=== PATIENT | male | born 1960 | race Caucasian/White ===

== ENCOUNTER 2017-10-02 08:13 | Inpatient (IN) | payer BC ==
[2017-10-02] MEDS ORDERED: RX INFO: IV CONTRAST WAS GIVEN 1 EACH MISC MISCELLANE PRN (08:24)
[2017-10-02] MEDS ORDERED: SODIUM CHLORIDE 0.9% 1,000 ML IV STA ×2 (08:24)
--- NOTE | 2017-10-02 08:28 | ED ---
General Adult HPI - General Chief complaint: Neuro Symptoms/Deficit Stated complaint: Leg numbness Time Seen by Provider: 10/02/17 08:23 Source: patient, RN notes reviewed, old records reviewed Mode of arrival: ambulatory Limitations: no limitations - History of Present Illness Initial comments: This is a 57-year-old male to the ER for evaluation of neurological complaint, left-sided weakness left arm weakness of leg weakness. Patient has history of high blood pressure high cholesterol. Patient has no prior history of neurological deficit. Symptoms began at 1:00 AM this morning. He was at work when symptoms began. Patient continues to have persistent symptoms now started left leg currently in left leg left arm. No headache. No trauma - Related Data Home Medications Medication Instructions Recorded Confirmed No Known Home Medications [No 10/02/17 10/02/17 Known Home Medications] Allergies Allergy/AdvReac Type Severity Reaction Status Date / Time No Known Allergies Allergy Verified 10/02/17 08:40 Review of Systems ROS Statement: Those systems with pertinent positive or pertinent negative responses have been documented in the HPI. ROS Other: All systems not noted in ROS Statement are negative. Past Medical History Past Medical History: Hyperlipidemia, Hypertension History of Any Multi-Drug Resistant Organisms: None Reported Past Surgical History: Joint Replacement, Orthopedic Surgery Past Psychological History: No Psychological Hx Reported Smoking Status: Current every day smoker Past Alcohol Use History: Occasional Past Drug Use History: None Reported General Exam - General Exam Comments Initial Comments: NIH 3 nystagmus, failed Left heel anthony, failed left finger nose Limitations: no limitations General appearance: alert, in no apparent distress Head exam: Present: atraumatic, normocephalic, normal inspection Eye exam: Present: normal appearance, PERRL, EOMI, nystagmus. Absent: scleral icterus, conjunctival injection, periorbital swelling ENT exam: Present: normal exam, mucous membranes moist Neck exam: Present: normal inspection. Absent: tenderness, meningismus, lymphadenopathy Respiratory exam: Present: normal lung sounds bilaterally. Absent: respiratory distress, wheezes, rales, rhonchi, stridor Cardiovascular Exam: Present: regular rate, normal rhythm, normal heart sounds. Absent: systolic murmur, diastolic murmur, rubs, gallop, clicks GI/Abdominal exam: Present: soft, normal bowel sounds. Absent: distended, tenderness, guarding, rebound, rigid Extremities exam: Present: normal inspection, full ROM, normal capillary refill. Absent: tenderness, pedal edema, joint swelling, calf tenderness Back exam: Present: normal inspection Neurological exam: Present: alert, oriented X3, CN II-XII intact Psychiatric exam: Present: normal affect, normal mood Skin exam: Present: warm, dry, intact, normal color. Absent: rash Course Vital Signs 10/02/17 08:14 Pulse Rate 103 H Respiratory 18 Rate Blood Pressure 150/98 O2 Sat by Pulse 99 Oximetry - Reevaluation(s) Reevaluation #1: 10/02/17 09:32 No significant clinical improvement throughout ER stay Reevaluation #2: 10/02/17 09:32 Spoke with patient regarding diagnosis, questions answered EKG Findings - EKG Comments: EKG Findings:: EKG shows normal sinus rhythm rate of 87, MI 178, QRS 92, QTc 474 Medical Decision Making - Medical Decision Making 57 male the ER for evaluation left-sided weakness, vertiginous symptoms likely related to CVA. Patient given aspirin here in ER was a for neurological evaluation - Lab Data Result diagrams: 10/02/17 08:30 10/02/17 08:30 Lab Results 10/02/17 10/02/17 10/02/17 Range/Units 08:30 08:30 08:30 WBC 10.0 (3.8-10.6) k/uL RBC 5.87 (4.30-5.90) m/uL Hgb 15.4 (13.0-17.5) gm/dL Hct 46.3 (39.0-53.0) % MCV 78.9 L (80.0-100.0) fL MCH 26.3 (25.0-35.0) pg MCHC 33.3 (31.0-37.0) g/dL RDW 13.4 (11.5-15.5) % Plt Count 329 (150-450) k/uL Neutrophils % 54 % Lymphocytes % 34 % Monocytes % 5 % Eosinophils % 4 % Basophils % 1 % Neutrophils # 5.4 (1.3-7.7) k/uL Lymphocytes # 3.4 (1.0-4.8) k/uL Monocytes # 0.5 (0-1.0) k/uL Eosinophils # 0.4 (0-0.7) k/uL Basophils # 0.1 (0-0.2) k/uL PT (9.0-12.0) sec INR (<1.2) APTT (22.0-30.0) sec Sodium 140 (137-145) mmol/L Potassium 4.3 (3.5-5.1) mmol/L Chloride 103 (98-107) mmol/L Carbon Dioxide 24 (22-30) mmol/L Anion Gap 13 mmol/L BUN 17 (9-20) mg/dL Creatinine 1.07 (0.66-1.25) mg/dL Est GFR (CKD-EPI)AfAm 89 (>60 ml/min/1.73 sqM) Est GFR (CKD-EPI)NonAf 77 (>60 ml/min/1.73 sqM) Glucose 113 H (74-99) mg/dL POC Glucose (mg/dL) (75-99) mg/dL POC Glu Director Business Development ID Calcium 9.3 (8.4-10.2) mg/dL Total Bilirubin 0.4 (0.2-1.3) mg/dL AST 28 (17-59) U/L ALT 37 (21-72) U/L Alkaline Phosphatase 73 (38-126) U/L Total Creatine Kinase 126 (55-170) U/L CK-MB (CK-2) 1.2 (0.0-2.4) ng/mL CK-MB (CK-2) Rel Index 1.0 Troponin I <0.012 (0.000-0.034) ng/mL Total Protein 7.4 (6.3-8.2) g/dL Albumin 4.3 (3.5-5.0) g/dL 10/02/17 10/02/17 Range/Units 08:30 08:33 WBC (3.8-10.6) k/uL RBC (4.30-5.90) m/uL Hgb (13.0-17.5) gm/dL Hct (39.0-53.0) % MCV (80.0-100.0) fL MCH (25.0-35.0) pg MCHC (31.0-37.0) g/dL RDW (11.5-15.5) % Plt Count (150-450) k/uL Neutrophils % % Lymphocytes % % Monocytes % % Eosinophils % % Basophils % % Neutrophils # (1.3-7.7) k/uL Lymphocytes # (1.0-4.8) k/uL Monocytes # (0-1.0) k/uL Eosinophils # (0-0.7) k/uL Basophils # (0-0.2) k/uL PT 9.9 (9.0-12.0) sec INR 1.0 (<1.2) APTT 25.4 (22.0-30.0) sec Sodium (137-145) mmol/L Potassium (3.5-5.1) mmol/L Chloride (98-107) mmol/L Carbon Dioxide (22-30) mmol/L Anion Gap mmol/L BUN (9-20) mg/dL Creatinine (0.66-1.25) mg/dL Est GFR (CKD-EPI)AfAm (>60 ml/min/1.73 sqM) Est GFR (CKD-EPI)NonAf (>60 ml/min/1.73 sqM) Glucose (74-99) mg/dL POC Glucose (mg/dL) 129 H (75-99) mg/dL POC Glu Director Business Development ID McDaid, Abbi Calcium (8.4-10.2) mg/dL Total Bilirubin (0.2-1.3) mg/dL AST (17-59) U/L ALT (21-72) U/L Alkaline Phosphatase (38-126) U/L Total Creatine Kinase (55-170) U/L CK-MB (CK-2) (0.0-2.4) ng/mL CK-MB (CK-2) Rel Index Troponin I (0.000-0.034) ng/mL Total Protein (6.3-8.2) g/dL Albumin (3.5-5.0) g/dL - Radiology Data Radiology results: report reviewed (Chest x-ray negative CT brain shows old lacunar infarct, CTA negative for acute disease), image reviewed Disposition Clinical Impression: Cerebrovascular accident Disposition: ADMITTED IP TO THIS [facility] Condition: Serious
[2017-10-02 08:34] LABS: Glucose,Whole Blood 129 mg/dL (75-99)
[2017-10-02 08:47] LABS: Basophils # (A) 0.1 k/uL (0-0.2); Basophils % (A) 1 %; Eosinophils # (A) 0.4 k/uL (0-0.7); Eosinophils % (A) 4 %; HCT 46.3 % (39.0-53.0); HGB 15.4 gm/dL (13.0-17.5); Lymphocytes # (A) 3.4 k/uL (1.0-4.8); Lymphocytes % (A) 34 %; MCH 26.3 pg (25.0-35.0); MCHC 33.3 g/dL (31.0-37.0); MCV 78.9 fL (80.0-100.0); Mean Platelet Volume 7.1; Monocytes # (A) 0.5 k/uL (0-1.0); Monocytes % (A) 5 %; Neutrophils # (A) 5.4 k/uL (1.3-7.7); Neutrophils % (A) 54 %; Platelet Count 329 k/uL (150-450); RBC 5.87 m/uL (4.30-5.90); RDW 13.4 % (11.5-15.5)
[2017-10-02 08:57] LABS: Albumin 4.3 g/dL (3.5-5.0); Calcium 9.3 mg/dL (8.4-10.2); Potassium 4.3 mmol/L (3.5-5.1); Total Bilirubin 0.4 mg/dL (0.2-1.3); Total Protein 7.4 g/dL (6.3-8.2)
[2017-10-02 09:07] LABS: Partial Thromboplastin Time 25.4 sec (22.0-30.0); Prothrombin Time 9.9 sec (9.0-12.0)
[2017-10-02 09:17] LABS: Creatine Kinase 126 U/L (55-170)
--- NOTE | 2017-10-02 09:18 | XR ---
EXAMINATION TYPE: XR chest 2V DATE OF EXAM: 10/02/2017 COMPARISON: None HISTORY: 57 year-old male altered mental status, left-sided chest numbness TECHNIQUE: PA and lateral views FINDINGS: The cardiomediastinal silhouette, aorta, and pulmonary vasculature are within normal limits. Mild int erstitial prominence has a chronic appearance. Otherwise, lungs and pleural spaces are clear. IMPRESSION: Chronic-appearing changes without acute cardiopulmonary process.
[2017-10-02 09:31] LABS: Creatine Kinase MB 1.2 ng/mL (0.0-2.4); Troponin I <0.012 ng/mL (0.000-0.034)
[2017-10-02] MEDS ORDERED: ASPIRIN 325 MG TAB PO STA (09:33)
--- NOTE | 2017-10-02 09:47 | CT ---
EXAMINATION TYPE: CT angio head neck DATE OF EXAM: 10/02/2017 COMPARISON: NONE HISTORY: 57-year-old male with neurologic deficits, chest numbness TECHNIQUE: Contiguous axial scanning of the head and neck performed with IV Contrast, patient injecte d with 65 mL of Omnipaque 350. Coronal/sagittal MIP reconstructions performed. 3-D reconstructions ge nerated on a dedicated independent workstation. CT DLP: 324.60 mGycm Automated exposure control for dose reduction was used. 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 Additionally, hypoplastic A1 segment left anterior cerebral artery. The vertebral, basilar, and internal carotid arteries are patent. No aneurysmal change identified. NECK: There seems to be conventional arch vessel branching anatomy, arch excluded from the imaging. Patent arch vessels. The vertebral arteries are patent at their origin and throughout their course. The right common and internal carotid arteries are patent with tortuosity of the upper most ICA and m ild atherosclerotic calcifications at the bulb. The left common carotid artery shows some mild eccentric plaque at the bifurcation and bulb with mini mal atherosclerotic calcification at the proximal bulb. The internal carotid artery is patent with to rtuosity of the upper most portion. IMPRESSION: 1. HEAD: SOME CONGENITAL VARIATION MENTIONED ABOVE. NO LARGE VESSEL INTRACRANIAL OCCLUSION OR SIGN IFICANT STENOSIS SEEN. 2. NECK: PATENT CAROTID AND VERTEBRAL VASCULATURE. MILD ATHEROSCLEROTIC CHANGES AT BOTH CAROTID BULBS . NO SIGNIFICANT STENOSIS.
--- NOTE | 2017-10-02 09:48 | CT ---
EXAMINATION TYPE: CT brain wo con DATE OF EXAM: 10/02/2017 COMPARISON: NONE HISTORY: 57-year-old male neurologic deficits, chest numbness TECHNIQUE: Examination was done in axial plane without intravenous contrast. Coronal and sagittal r econstructions performed. CT DLP: 1108.4 mGycm Automated exposure control for dose reduction was used. FINDINGS: There is no evidence of acute intracranial hemorrhage, acute ischemic changes, mass, mass-effect, or extra-axial fluid collection. There is no effacement of cerebral sulci or basal subarachnoid cister ns. There is no hydrocephalus. There is no midline shift. Aguillon-white matter distinction is preserv ed. Focal 1.8 x 0.9 cm hypodensity left basal ganglia/anterior limb internal capsule. Mild patchy periven tricular white matter hypodensities. Mucosal thickening ethmoid air cells and maxillary sinuses with small air-fluid level in the right ma xillary sinus. Globes are intact and mastoid air cells are well pneumatized. IMPRESSION: 1. No acute intracranial abnormality seen. 2. An old, large lacunar infarct of the left basal ganglia. Correlate for prior history of vascular i nsult. 3. 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
--- NOTE | 2017-10-02 13:25 | ECHOF ---
Referral Reason:Thrombus MEASUREMENTS -------- HEIGHT: 165.1 cm WEIGHT: 81.6 kg BP: 150/98 IVSd: 1.1 cm (0.6 - 1.1) LVIDd: 4.5 cm (3.9 - 5.3) LVPWd: 1.0 cm (0.6 - 1.1) IVSs: 1.4 cm LVIDs: 3.2 cm LVPWs: 1.3 cm LAESV Index (A-L): 14.24 ml/m Ao Diam: 4.0 cm (2.0 - 3.7) AV Cusp: 2.2 cm (1.5 - 2.6) LA Diam: 2.9 cm (2.7 - 3.8) MV E Faheem: 0.71 m/s MV DecT: 283 ms MV A Faheem: 0.90 m/s MV E/A Ratio: 0.79 AR PHT: 525 ms RAP: 5.00 mmHg RVSP: 30.87 mmHg MV EF SLOPE: 46.59 mm/s (70 - 150) MV EXCURSION: 1.16 cm (> 18.000) FINDINGS -------- Sinus rhythm. This was a technically adequate study. The left ventricular size is normal. There is borderline concentric left ventricular hypertrophy. Overall left ventricular systolic function is normal with, an EF between 55 - 60 %. The right ventricle is normal in size and function. Normal LA size by volume 22+/-6 ml/m2. The right atrium is normal in size. Aortic valve is trileaflet and is mildly thickened. There is [id number] aortic regurgitation. There is no evidence of aortic stenosis. The mitral valve leaflets are mildly thickened. There is trace to mild mitral regurgitation. Trace tricuspid regurgitation present. Right ventricular systolic pressure is normal at < 35 mmHg. There is no evidence of pulmonary hypertension. Trace/mild (physiologic) pulmonic regurgitation. The aortic root size is normal. Normal inferior vena cava with normal inspiratory collapse consistent with estimated right atrial pre ssure of 5 mmHg. There is no pericardial effusion. CONCLUSIONS -------- 1. Sinus rhythm. 2. This was a technically adequate study. 3. The left ventricular size is normal. 4. There is borderline concentric left ventricular hypertrophy. 5. Overall left ventricular systolic function is normal with, an EF between 55 - 60 %. 6. Normal LA size by volume 22+/-6 ml/m2. 7. Aortic valve is trileaflet and is mildly thickened. 8. There is [id number] aortic regurgitation. 9. The mitral valve leaflets are mildly thickened. 10. There is trace to mild mitral regurgitation. 11. Trace tricuspid regurgitation present. 12. Right ventricular systolic pressure is normal at < 35 mmHg. 13. There is no evidence of pulmonary hypertension. 14. Trace/mild (physiologic) pulmonic regurgitation. 15. The aortic root size is normal. 16. There is no pericardial effusion. COURT OPERATIONS CLERK: Germain Thornton RDCS
[2017-10-02] MEDS: ATORVASTATIN 40 MG TAB PO SCH (20:25)
--- NOTE | 2017-10-02 21:14 | P.HPIM ---
History of Present Illness H&P Date: 10/02/17 Chief Complaint: Left leg weakness Patient is a 57-year-old male with a known history of hypertension, hyperlipidemia came to the hospital with complaints of left-sided weakness and left leg numbness. Symptoms began last night at about 1 AM while he was at work. Patient's also having left facial droop when symptoms began as per patient. Currently facial droop is completely resolved. Patient is still having left leg slight numbness. Patient came to ER directly from work. Otherwise patient does have history of hypertension and also hyperlipidemia. Patient does smoke about 1 pack in 2 days and 6 pack of beer in the weekends. Denied any recent illnesses or sick contacts at home. No recent travel. No chest pain no shortness of breath no nausea vomiting or abdominal pain or diarrhea. Patient says that he felt some bloody vision and dizziness and frontal numbness about 2 times during last 2 years. Other than that patient denied any previous history. CTA head and neck showed no significant stenosis or obstruction. Mild atherosclerotic changes noted. CT head showed no acute process. Old left basilar ganglia large infarct noted. Acute on chronic maxillary sinus disease. 2-D echo showed normal ejection fraction Review of Systems Constitutional: Patient denies any fever or chills . No generalized weakness or weight loss. Abdomen: Patient denied nausea vomiting and diarrhea and abdominal pain. Cardiovascular: Patient denies any chest pain or short of breath no palpitations. Respiratory: patient denied any cough is from production. No shortness of breath Neurologic: Patient denied any numbness or tingling headache. Musculoskeletal: Patient denies any complaints of joint swelling or deformity. Left leg numbness Skin: Negative Psychiatric: Negative Endocrine: No heat or cold intolerance. No recent weight gain. Genitourinary: No dysuria or hematuria. All other 14 point ROS negative except the above Past Medical History Past Medical History: Hyperlipidemia, Hypertension History of Any Multi-Drug Resistant Organisms: None Reported Past Surgical History: Joint Replacement, Orthopedic Surgery Additional Past Surgical History / Comment(s): Total R hip arthroplasty, L wrist fracture with surgery, UVPPP, facial fracture when a child with surgery, sinus surgery. Past Anesthesia/Blood Transfusion Reactions: No Reported Reaction Smoking Status: Current every day smoker - Past Family History Father Family Medical History: Cancer Additional Family Medical History / Comment(s): Father had "blood cancer" and of this at the age of 61 yrs. Mother Family Medical History: Cancer Additional Family Medical History / Comment(s): Mother from lymphoma at the age of 62 yrs. Medications and Allergies Home Medications Medication Instructions Recorded Confirmed Type No Known Home Medications [No 10/02/17 10/02/17 History Known Home Medications] Allergies Allergy/AdvReac Type Severity Reaction Status Date / Time No Known Allergies Allergy Verified 10/02/17 08:40 Physical Exam Vitals: Vital Signs Pulse Resp BP Pulse Ox 10/02/17 11:17 74 16 138/89 97 10/02/17 10:11 78 16 145/81 99 10/02/17 09:15 88 16 156/86 99 10/02/17 08:14 103 H 18 150/98 99 Intake and Output 10/01/17 10/02/17 10/02/17 22:59 06:59 14:59 Other: Weight 81.647 kg PHYSICAL EXAMINATION: Patient is lying in the bed comfortably, no acute distress, awake alert and oriented.. HEENT: Normocephalic. Neck is supple. Pupils reactive. Nostrils clear. Oral cavity is moist. Ears reveal no drainage. Neck reveals no JVD, carotid bruits, or thyromegaly. CHEST EXAMINATION: Trachea is central. Symmetrical expansion. Lung gonzalez clear to auscultation and percussion. CARDIAC: Normal S1, S2 with no gallops. No murmurs ABDOMEN: Soft. Bowel sounds normal. No organomegaly. No abdominal bruits. Extremities: reveal no edema. No clubbing or cyanosis Neurologically awake, alert, oriented x3 with well-coordinated movements. Muscle strength motor 5 x 5 all 4 extremities. No focal deficits noted Skin: No rash or skin lesions. Psychiatric: Coperative. Nonsuicidal Musculoskeletal: No joint swelling or deformity. Normal range of motion. Results CBC & Chem 7: 10/02/17 08:30 10/02/17 08:30 Labs: Abnormal Lab Results - Last 24 Hours (Table) 10/02/17 10/02/17 10/02/17 Range/Units 08:30 08:30 08:33 MCV 78.9 L (80.0-100.0) fL Glucose 113 H (74-99) mg/dL POC Glucose (mg/dL) 129 H (75-99) mg/dL Thrombosis Risk Factor Assmnt - DVT/VTE Prophylaxis DVT/VTE Prophylaxis: Pharmacologic Prophylaxis ordered - Choose All That Apply Any of the Below Risk Factors Present?: Yes Each Factor Represents 1 point: Obesity (BMI >25) Other Risk Factors: Yes Other congenital or acquired thrombophilia - If yes, enter type in comment: No Each Risk Factor Represents 5 Points: Stroke (< 1 month) Thrombosis Risk Factor Assessment Total Risk Factor Score: 6 Thrombosis Risk Factor Assessment Level: High Risk Assessment and Plan Assessment: Left-sided weakness and numbness likely due to TIA. Rule out CVA Hypertension controlled Hyperlipidemia Nicotine addiction DVT prophylaxis Plan: Patient was given a dose of aspirin. Continue with statins. Neurology was consulted. MRI of the brain was ordered. We'll continue with the neuro checks and follow closely. Patient does not take any medications for blood pressure at home. We will follow up closely. Further recommendations based on the clinical course. Time with Patient: Greater than 30
--- NOTE | 2017-10-02 21:15 | MR ---
EXAMINATION TYPE: MR brain wo/w con DATE OF EXAM: 10/02/2017 COMPARISON: NONE HISTORY: CVA, Gadavist 7.5ml TECHNIQUE: Multiplanar, multisequence images of the brain and brainstem is performed without and with IV contras t, utilizing 7.5 mL intravenous Gadavist . FINDINGS: There is some cerebral cortical atrophy. On the FLAIR images there is a 1 cm area of increa sed signal in the anterior left internal capsule. Ventricles have fairly normal size. On the diffusion and FLAIR images there is a patchy 3 x 1 cm area of increased signal in the right he misphere adjacent to the right lateral ventricle involving the right internal capsule. There is no mi dline shift. There is no sign of intracranial hemorrhage. There is mucosal thickening in the maxillary and ethmoid sinuses. There is 5 mm focus of increased signal in the stan on the left side on the FLAIR images. There is so me minimal thinning of the corpus callosum. The sella turcica appears normal. I see no pathologic enh ancement. On the FLAIR images there are scattered white matter high signal foci in both cerebral jesse spheres that measure up to 7 mm at the simmons-white matter junction. IMPRESSION: Cerebral atrophy. Old left internal capsule lacunar infarct. There is evidence for acute 3 x 1 cm infarct in the right internal capsule on the FLAIR and diffusion images. Multiple scattered relatively small white matter high signal foci consistent with chronic microvascul ar ischemia. There is a larger 1 cm focus in the right posterior frontal lobe white matter adjacent t o the lateral ventricle. Demyelinating diseases in the differential diagnosis.
--- NOTE | 2017-10-02 21:24 | P.CNNES ---
History of Present Illness Consult date: 10/02/17 Requesting physician: Jake Pyle Reason for Consult: Stroke/TIA Chief complaint: Stroke/TIA with left sided deficits. History of Present Illness: Patient is a 57 year old male being consulted on by Neurology for left upper & left lower extremity weakness. Patient also has left perioral droop and some altered speech. Patient states he was at work today at approximately [id number] hours when he felt his left leg weaken then the symptoms spread to his left upper extremity and then to his left facial area. Patient states that he also lost complete control of his left lower extremity and was noted to be "dragging " his left leg. Patient completed his shift, drove himself to the ED at approximately [address] brain was ordered in the ED and noted no acute process but there was noted a large old left lacunar infarct of the left basal ganglia. Acute on chronic maxillary sinus disease. On contact, the patient was supine in bed resting in no acute distress. Patient was AOx4. Family was present at the bedside. Patient had visible left perioral facial droop and some slurred / difficulty with motor speech difficulty. Patient denied any history of prior CVA/TIA, vision changes, confusion, difficulty breathing, shortness of breath, other weakness or abnormal sensations. Patient was not on aspirin at home prior to this incident. Patient has not been followed by a PCP in several years for proactive management. Past Medical History Past Medical History: Hyperlipidemia, Hypertension History of Any Multi-Drug Resistant Organisms: None Reported Past Surgical History: Joint Replacement, Orthopedic Surgery Additional Past Surgical History / Comment(s): Total R hip arthroplasty, L wrist fracture with surgery, UVPPP, facial fracture when a child with surgery, sinus surgery. Past Anesthesia/Blood Transfusion Reactions: No Reported Reaction Smoking Status: Current every day smoker - Past Family History Father Family Medical History: Cancer Additional Family Medical History / Comment(s): Father had "blood cancer" and of this at the age of 61 yrs. Mother Family Medical History: Cancer Additional Family Medical History / Comment(s): Mother from lymphoma at the age of 62 yrs. Medications and Allergies Home Medications Medication Instructions Recorded Confirmed Type No Known Home Medications [No 10/02/17 10/02/17 History Known Home Medications] Allergies Allergy/AdvReac Type Severity Reaction Status Date / Time No Known Allergies Allergy Verified 10/02/17 08:40 Physical Examination - Vital Signs Vital Signs: Vital Signs Temp Pulse Pulse Resp BP BP Pulse Ox 10/02/17 16:00 97 F L 68 16 141/82 97 10/02/17 11:45 98.5 F 71 16 149/92 95 10/02/17 11:17 74 16 138/89 97 10/02/17 10:11 78 16 145/81 99 10/02/17 09:15 88 16 156/86 99 10/02/17 08:14 103 H 18 150/98 99 Intake and Output 10/02/17 10/02/17 10/02/17 06:59 14:59 22:59 Intake Total 240 Output Total 0 300 Balance 240 -300 Intake: Oral 240 Output: Urine 0 300 Other: # Voids 1 # Bowel Movements 0 0 Weight 81.647 kg General appearance: Alert & oriented x4, no apparent distress. Head: Atraumatic, normocephalic, normal inspection Eyes: PERRLA, EOMI. Absent scleral icterus, conjunctival injection, nystagmus, periorbital swelling. Ear, nose and throat: Normal exam, mucous membranes moist Neck: Normal inspection, absent tenderness, lymphadenopathy. Respiratory: No increased work of breathing Cardiovascular: Regular rate, rhythm GI/abdominal: nondistended, no tenderness, no guarding, no rebound, no rigidity. Extremities:decreased range of motion left upper and lower extremity, normal capillary refill, no tenderness, pedal edema joint swelling, calf tenderness. Neurological: cranial nerves II through XII intact left lateralizing weakness no seizure activity noted on physical exam no pronator drift and no nystagmus. Left lower extremity: 3+/5 Right lower extremity: 4+/5 Left upper extremity: 3+/5 Right upper extremity: 4+/5 Sensation: Left lower extremity: normal Right lower extremity: normal Left upper extremity: normal Right upper extremity: normal Psychological: Mood and affect appropriate for setting. Results - Laboratory Findings CBC and BMP: 10/02/17 08:30 10/02/17 08:30 Abnormal Lab Findings: Abnormal Labs 10/02/17 10/02/17 10/02/17 08:30 08:30 08:33 MCV 78.9 L Glucose 113 H POC Glucose (mg/dL) 129 H Assessment and Plan (1) Left hemiparesis Current Visit: Yes Status: Acute Code(s): G81.94 - HEMIPLEGIA, UNSPECIFIED AFFECTING LEFT NONDOMINANT SIDE SNOMED Code(s): 084908942 (2) History of CVA (cerebrovascular accident) Current Visit: Yes Status: Acute Code(s): Z86.73 - PRSNL HX OF TIA (TIA), AND CEREB INFRC W/O RESID DEFICITS SNOMED Code(s): 300728445 (3) Motor speech disorder Current Visit: Yes Status: Acute Code(s): R47.89 - OTHER SPEECH DISTURBANCES SNOMED Code(s): 392846009 Plan: 1. CVA 2. Left hemiparesis/weakness 3. 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 History of CVAleft old lacunar infarctlarge Patient does appear to have experienced a CVA and does have physical exam findings of decreased upper lower extremity strength and left perioral facial droop. Patient also does have some mild dysarthria. CT brain was negative for contributory causes. CT angiogram noted mild plaque. MRI brain is taken but not read. EEG has been ordered. Fasting lipid panel scheduled for tomorrow morning. Serum homocystine level has been ordered. Continue neuro checks as ordered. Prescribed Plavix 75 mg by mouth daily, Lipitor 40 mg by mouth daily at bedtime. Speech, PT, OT artery on consult. Continue DVT prophylaxis. Status: Neurology will continue to follow provide updates as needed or warranted. I have discussed the plan of care with the physician prior to implementation and he agrees with the plan as implemented.
[2017-10-03 06:40] LABS: Cholesterol 224 mg/dL (<200); HDL Cholesterol 37 mg/dL (40-60); LDL Cholesterol,Calculated 162 mg/dL (0-99); Triglycerides 126 mg/dL (<150)
[2017-10-03] MEDS ORDERED: ASPIRIN 325 MG TAB PO SCH (09:00)
[2017-10-03] MEDS: CLOPIDOGREL 75 MG TAB PO SCH (09:30)
[2017-10-03] MEDS: PANTOPRAZOLE 40 MG/10 ML VIAL IVP SCH (19:12)
[2017-10-03] MEDS: ATORVASTATIN 40 MG TAB PO SCH (20:51)
--- NOTE | 2017-10-03 21:30 | P.PN ---
Subjective Progress Note Date: 10/03/17 Progress Note being dictated for Dr. Gupta. Interval history:Patient is a 57-year-old male with a known history of hypertension, hyperlipidemia came to the hospital with complaints of left-sided weakness and left leg numbness. Symptoms began last night at about 1 AM while he was at work. Patient's also having left facial droop when symptoms began as per patient. Currently facial droop is completely resolved. Patient is still having left leg slight numbness. Patient came to ER directly from work. Otherwise patient does have history of hypertension and also hyperlipidemia. Patient does smoke about 1 pack in 2 days and 6 pack of beer in the weekends. Denied any recent illnesses or sick contacts at home. No recent travel. No chest pain no shortness of breath no nausea vomiting or abdominal pain or diarrhea. Patient says that he felt some bloody vision and dizziness and frontal numbness about 2 times during last 2 years. Other than that patient denied any previous history. CTA head and neck showed no significant stenosis or obstruction. Mild atherosclerotic changes noted. CT head showed no acute process. Old left basilar ganglia large infarct noted. Acute on chronic maxillary sinus disease. 2-D echo showed normal ejection fraction Review of Systems Constitutional: Patient denies any fever or chills . No generalized weakness or weight loss. Abdomen: Patient denied nausea vomiting and diarrhea and abdominal pain. Cardiovascular: Patient denies any chest pain or short of breath no palpitations. Respiratory: patient denied any cough is from production. No shortness of breath Neurologic: Patient denied any numbness or tingling headache. Musculoskeletal: Patient denies any complaints of joint swelling or deformity. Left leg numbness Skin: Negative Psychiatric: Negative Endocrine: No heat or cold intolerance. No recent weight gain. Genitourinary: No dysuria or hematuria. All other 14 point ROS negative except the above 10/03/17 brain MRI reported internal capsule lacunar infarct, evidence of acute 3 x 1 cm infarct in the right internal capsule. Cerebral atrophy, chronic microvascular ischemia, larger 1 cm focus in the right posterior frontal lobe white matter adjacent to the lateral ventricle,possible demyelinating diseases. EEG performed, results pending. continue left-sided weakness of upper and lower extremities, slurred speech improved.denies chest pain, palpitations or increasing shortness of breath. denies headache, lightheadedness or focal deficits. Telemetry sinus rhythm.cholesterol 224,LDL 162. Objective - Vital Signs Vital signs: Vital Signs Temp 97.0 F L 10/03/17 16:00 Pulse 68 10/03/17 16:15 Resp 16 10/03/17 16:15 BP 137/88 10/03/17 16:00 Pulse Ox 97 10/03/17 16:00 Intake & Output 10/02/17 10/03/17 10/03/17 18:59 06:59 18:59 Intake Total 240 500 360 Output Total 300 Balance -60 500 360 Weight 81.647 kg Intake: IV 20 0.9 20 Oral 240 480 360 Output: Urine 300 Other: Voiding Method Urinal Urinal Diaper Incontinent # Voids 1 1 # Bowel Movements 0 - Exam Patient is sitting upin the bed comfortably, no acute distress, awake alert and oriented.. HEENT: Normocephalic. Neck is supple. Pupils reactive. Nostrils clear. Oral cavity is moist. Neck reveals no JVD, carotid bruits, or thyromegaly. CHEST EXAMINATION: Trachea is central. Symmetrical expansion. Lung gonzalez clear to auscultation and percussion. CARDIAC: Normal S1, S2 with no gallops. No murmurs ABDOMEN: Soft. Bowel sounds normal. No organomegaly. No abdominal bruits. Extremities: reveal no edema. No clubbing or cyanosis Neurologically awake, alert, oriented x3 with well-coordinated movements. Muscle strength motor 5 x 5 in right extremities. Left upper & lower extremities 3+/5. Left facial droop noted. slurred speech resolved .No focal deficits. Skin: No rash or skin lesions. Psychiatric: Coperative. Nonsuicidal Musculoskeletal: No joint swelling or deformity. Normal range of motion. - Labs CBC & Chem 7: 10/02/17 08:30 10/02/17 08:30 Labs: Abnormal Lab Results - Last 24 Hours (Table) 10/03/17 Range/Units 06:12 Cholesterol 224 H (<200) mg/dL LDL Cholesterol, Calc 162 H (0-99) mg/dL HDL Cholesterol 37 L (40-60) mg/dL Assessment and Plan Assessment: Left-sided weakness and numbness secondary to acute infarct in the right internal capsule. Hypertension controlled Hyperlipidemia Nicotine addiction DVT prophylaxis Aortic regurgitation, mild to moderate Plan: Continue on current medication regime, Plavix, statin, monitoring and symptomatic treatment. Speech therapy, PT/OT. Neuro checks.neuro workup in progress. Follow closely with neurology.further recommendations to follow. The impression and plan of care has been dictated as directed. : I performed a history and examination of this patient, discussed the same with the dictator. I agree with the dictator's note ,documented as a scribe. Any additional findings or plans will be noted.
--- NOTE | 2017-10-03 21:59 | P.PN ---
Subjective Progress Note Date: 10/03/17 Principal diagnosis: CVA- Documented MRI Right Internal Capsule Interval Update: 10/03/17- 0600 hrs: Neurology is following on a 57 year old male with left upper and lower extremity deficits. Patient also has left perioral droop. Patient also still has some altered speech. Patient was at work had evolving left sided deficits but did not present at the ED until 8-9 hours post onset of symptoms. On contact, the patient was sleeping in bed in no acute distress. Patient, on being woken, was AOx4. Patient still had noted speech difficulty and left perioral droop as previously noted. Patient reported no new symptoms over night but nursing noted increased symptoms in the left extremities. Medications: Lipitor and Plavix as noted. MRI Brain 10/02/17: Evidence of acute 3x1 cm infarct in the right internal capsule. Other white matter changes were also noted including possible additional demyelinating disease. CT Brain 10/02/17: no acute process, large old left lacunar infarctof the left basal ganglia. Acute on chronic maxillary sinus disease. CT Angiogram: no hemodynamically significant stenosis. Objective - Vital Signs Vital signs: Vital Signs Temp 99.1 F 10/03/17 20:00 Pulse 69 10/03/17 20:00 Resp 16 10/03/17 20:00 BP 128/74 10/03/17 20:00 Pulse Ox 98 10/03/17 20:00 Intake & Output 10/03/17 10/03/17 10/04/17 06:59 18:59 06:59 Intake Total 500 360 Output Total 975 Balance 500 -615 Intake: IV 20 0.9 20 Oral 480 360 Output: Urine 975 Other: Voiding Method Urinal Urinal Diaper Incontinent # Voids 1 - Exam General appearance: Alert & oriented x4, no apparent distress. Head: Atraumatic, normocephalic, normal inspection Eyes: Well appearance, PERRLA, EOMI. Absent scleral icterus, conjunctival injection, nystagmus, periorbital swelling. Ear, nose and throat: Normal exam, mucous membranes moist Neck: Normal inspection, absent tenderness, lymphadenopathy. Respiratory: No increased work of breathing Cardiovascular: Regular rate, rhythm GI/abdominal: no tenderness, no guarding, no rebound, no rigidity. Extremities: Decreased range of motion on the left, normal capillary refill, no tenderness, pedal edema joint swelling, calf tenderness. Neurological: cranial nerves II through XII grossly intact left lateralizing weakness no seizure activity noted on physical exam no pronator drift and no nystagmus. Left lower extremity: 3/5 Right lower extremity: 4+/5 Left upper extremity: 3/5 Right upper extremity: 4+/5 Sensation: Left lower extremity: normal Right lower extremity: normal Left upper extremity: normal Right upper extremity: normal Psychological: Mood and affect appropriate for setting. - Labs CBC & Chem 7: 10/02/17 08:30 10/02/17 08:30 Labs: Abnormal Lab Results - Last 24 Hours (Table) 10/03/17 Range/Units 06:12 Cholesterol 224 H (<200) mg/dL LDL Cholesterol, Calc 162 H (0-99) mg/dL HDL Cholesterol 37 L (40-60) mg/dL Assessment and Plan (1) Left hemiparesis Current Visit: Yes Status: Acute Code(s): G81.94 - HEMIPLEGIA, UNSPECIFIED AFFECTING LEFT NONDOMINANT SIDE SNOMED Code(s): 204944134 (2) History of CVA (cerebrovascular accident) Current Visit: Yes Status: Acute Code(s): Z86.73 - PRSNL HX OF TIA (TIA), AND CEREB INFRC W/O RESID DEFICITS SNOMED Code(s): 262410572 (3) Motor speech disorder Current Visit: Yes Status: Acute Code(s): R47.89 - OTHER SPEECH DISTURBANCES SNOMED Code(s): 451015977 (4) White matter changes Current Visit: Yes Status: Acute Code(s): YZQ3265 - SNOMED Code(s): 768894465 Plan: 1. CVA- right internal capsule infarct 2. Left hemiparesis/weakness 3. 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 History of CVAleft old lacunar infarctlarge 5. White matter changes- demyelination disease not excluded Patient does appear to have experienced a CVA as confirmed by MRI and does have physical exam findings of decreased upper lower extremity strength and left perioral facial droop. Patient also does have some mild dysarthria. CT brain was negative for contributory causes. CT angiogram noted mild plaque. MRI brain noted 3x1 cm right internal capsule infarct and white matter changes in various areas, demyelination cannot be excluded. EEG has been ordered. Fasting lipid panel was abnormal with total cholesterol at 224- elevated, LDL - elevated at 162 and low HDL. Serum homocystine level was normal. Continue neuro checks QSHIFT Continue: Plavix 75 mg by mouth daily Continue: Lipitor 40 mg by mouth daily at bedtime. Continue: Speech, PT, OT. Continue DVT prophylaxis. White matter changes can be worked up outpatient. Anticipate clearing patient for rehabilitation assignment on 10/04/17 if no new symptoms or no increased symptoms through the day and night. Status: Neurology will continue to follow provide updates as needed or warranted. I have discussed the plan of care with the physician prior to implementation and he agrees with the plan as implemented.
[2017-10-04] MEDS: PANTOPRAZOLE 40 MG/10 ML VIAL IVP SCH (08:08)
[2017-10-04] MEDS: CLOPIDOGREL 75 MG TAB PO SCH (08:08)
--- NOTE | 2017-10-04 15:23 | P.PN ---
Subjective Principal diagnosis: CVA- Documented MRI Right Internal Capsule Interval Update: 10/04/17: 1500 hrs: Neurology is still following on a 57-year-old male with left lower extremity deficits. Patient has left perioral droop. Patient still has altered speech. She reports speech therapy was conducting therapy on 10/03/2017. Patient reports no new deficits and no changes with existing deficits in the last 24 hours. Patient is alert and oriented 4, resting in bed in no acute distress. 10/03/17- 0600 hrs: Neurology is following on a 57 year old male with left upper and lower extremity deficits. Patient also has left perioral droop. Patient also still has some altered speech. Patient was at work had evolving left sided deficits but did not present at the ED until 8-9 hours post onset of symptoms. On contact, the patient was sleeping in bed in no acute distress. Patient, on being woken, was AOx4. Patient still had noted speech difficulty and left perioral droop as previously noted. Patient reported no new symptoms over night but nursing noted increased symptoms in the left extremities. Medications: Lipitor and Plavix as noted. MRI Brain 10/02/17: Evidence of acute 3x1 cm infarct in the right internal capsule. Other white matter changes were also noted including possible additional demyelinating disease. CT Brain 10/02/17: no acute process, large old left lacunar infarctof the left basal ganglia. Acute on chronic maxillary sinus disease. CT Angiogram: no hemodynamically significant stenosis. Objective - Vital Signs Vital signs: Vital Signs Temp 97.1 F L 10/04/17 08:00 Pulse 104 H 10/04/17 12:00 Resp 16 10/04/17 12:00 BP 122/88 10/04/17 12:00 Pulse Ox 97 10/04/17 12:00 Intake & Output 10/03/17 10/04/17 10/04/17 18:59 06:59 18:59 Intake Total 360 360 Output Total 975 750 1 Balance -615 -750 359 Weight 92 kg Intake: Oral 360 360 Output: Urine 975 750 Stool 1 Other: Voiding Method Urinal Urinal Urinal # Voids 1 2 - Exam General appearance: Alert & oriented x4, no apparent distress. Head: Atraumatic, normocephalic, normal inspection Eyes: Well appearance, PERRLA, EOMI. Absent scleral icterus, conjunctival injection, nystagmus, periorbital swelling. Ear, nose and throat: Normal exam, mucous membranes moist Neck: Normal inspection, absent tenderness, lymphadenopathy. Respiratory: No increased work of breathing Cardiovascular: Regular rate, rhythm GI/abdominal: no tenderness, no guarding, no rebound, no rigidity. Extremities: Decreased range of motion on the left, normal capillary refill, no tenderness, pedal edema joint swelling, calf tenderness. Neurological: cranial nerves II through XII grossly intact left lateralizing weakness no seizure activity noted on physical exam no pronator drift and no nystagmus. Left lower extremity: 3/5 Right lower extremity: 4+/5 Left upper extremity: 3/5 Right upper extremity: 4+/5 Sensation: Left lower extremity: normal Right lower extremity: normal Left upper extremity: normal Right upper extremity: normal Psychological: Mood and affect appropriate for setting. - Labs CBC & Chem 7: 10/02/17 08:30 10/02/17 08:30 Assessment and Plan (1) Left hemiparesis Current Visit: Yes Status: Acute Code(s): G81.94 - HEMIPLEGIA, UNSPECIFIED AFFECTING LEFT NONDOMINANT SIDE SNOMED Code(s): 367192481 (2) History of CVA (cerebrovascular accident) Current Visit: Yes Status: Acute Code(s): Z86.73 - PRSNL HX OF TIA (TIA), AND CEREB INFRC W/O RESID DEFICITS SNOMED Code(s): 236804613 (3) Motor speech disorder Current Visit: Yes Status: Acute Code(s): R47.89 - OTHER SPEECH DISTURBANCES SNOMED Code(s): 428320927 (4) White matter changes Current Visit: Yes Status: Acute Code(s): [id number] - SNOMED Code(s): 960237158 Plan: 1. CVA- right internal capsule infarct 2. Left hemiparesis/weakness 3. 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 History of CVAleft old lacunar infarctlarge 5. White matter changes- demyelination disease not excluded Patient does appear to have experienced a CVA as confirmed by MRI and does have physical exam findings of decreased upper lower extremity strength and left perioral facial droop. Patient also does have some mild dysarthria. CT brain was negative for contributory causes. CT angiogram noted mild plaque. MRI brain noted 3x1 cm right internal capsule infarct and white matter changes in various areas, demyelination cannot be excluded. EEG has been ordered. Fasting lipid panel was abnormal with total cholesterol at 224- elevated, LDL - elevated at 162 and low HDL. Serum homocystine level was normal. Continue neuro checks QSHIFT Continue: Plavix 75 mg by mouth daily Continue: Lipitor 40 mg by mouth daily at bedtime. Continue: Speech, PT, OT. Continue DVT prophylaxis. White matter changes can be worked up outpatient. Patient has not had any new or increased symptoms in the last 24 hours. Status: Neurology will clear the patient from a neurological standpoint for placement in a rehabilitation facility at this time. I have discussed the plan of care with the physician prior to implementation and he agrees with the plan as implemented.
[2017-10-04] MEDS: HEPARIN SODIUM,PORCINE 5,000 UNIT/ML 1 ML VIAL SQ SCH ×2 (16:41→19:52)
--- NOTE | 2017-10-04 18:38 | PN ---
PROGRESS NOTE DATE OF SERVICE: 10/04/2017 This 57-year-old gentleman who was admitted with significant weakness of the left side of the body also had an MRI. MRI showed old left internal capsular lateral infarct and evidence of acute 3.3 x 1 cm infarct in the right internal capsule on the and diffusion images and multiple scattered relatively small white also noted, indicating chronic microvascular ischemia. The patient is being closely monitored at this time. PAST MEDICAL HISTORY: Reviewed. REVIEW OF SYSTEMS: CARDIOVASCULAR: No angina, palpitations. RESPIRATORY: As mentioned earlier. GI: No nausea or vomiting. NERVOUS: As mentioned earlier. CURRENT MEDICATIONS: Reviewed, include: 1. Lipitor 40 mg q.h.s. 2. Plavix 75 mg. 3. Heparin 5 subcu b.i.d. 4. Protonix 40 mg p.o. daily. PHYSICAL EXAMINATION: The patient is alert oriented x3. Pulse 79, blood pressure 139/80, respirations 16, temperature is normal, pulse ox 94% on room air. HEENT: Conjunctivae normal. Oral mucosa moist. NECK: No jugular venous distention. No carotid bruits. No lymph node enlargement. CARDIOVASCULAR: S1, S2 muffled. RESPIRATORY: Breath sounds diminished in the bases. No rhonchi. No crackles. ABDOMEN: Soft, nontender. LEGS: No edema. NERVOUS SYSTEM: Significant weakness or the left upper and lower limbs, 1-2 power. Gait dysfunction also present. LYMPHATIC: No lymphadenopathy in neck or axillae. SKIN: No ulcer, rash or bleeding. LABS: WBC 10, hemoglobin is 15.4. Glucose is 224. ASSESSMENT: 1. Acute left-sided weakness and stroke caused by right internal capsular infarct. 2. Old left internal capsular infarct. 3. Hypertension, uncontrolled. 4. Hyperlipidemia. 5. History of nicotine dependence. 6. Deep venous thrombosis prophylaxis. 7. Aortic regurgitation, mild to moderate on the 2D echo. RECOMMENDATION AND DISCUSSION: In this 57-year-old gentleman who presented with multiple complex medical issues , will monitor the patient closely. Continue the current medical management and symptomatic treatment, continue with antiplatelets and DVT prophylaxis. I would also recommend closely follow with neurology consultation, PT/OT evaluation. I had a detailed discussion with the family at the bedside. At this time, the family would like to send the patient to a rehab facility near [facility] since multiple family members are living, including the daughters and son, are living in that area. Otherwise , I would also recommend a cardiology consultation because of the aortic regurg and the stroke also for possible evaluation. Otherwise, we will continue to monitor. Smoking cessation advice has been given and the patient also reports significant stress at work as well. Will continue to monitor. Guarded prognosis. Further recommendations to follow. MMCAMERONL / IJN: [id number] / JACQUI
[2017-10-04] MEDS: ATORVASTATIN 40 MG TAB PO SCH (19:50)
[2017-10-05] MEDS: PANTOPRAZOLE 40 MG TABLET PO SCH (06:29)
[2017-10-05 06:51] LABS: Basophils # (A) 0.1 k/uL (0-0.2); Basophils % (A) 1 %; Eosinophils # (A) 0.4 k/uL (0-0.7); Eosinophils % (A) 4 %; HCT 48.1 % (39.0-53.0); HGB 15.9 gm/dL (13.0-17.5); Lymphocytes # (A) 2.6 k/uL (1.0-4.8); Lymphocytes % (A) 31 %; MCH 26.2 pg (25.0-35.0); MCV 79.5 fL (80.0-100.0); Mean Platelet Volume 7.5; Monocytes # (A) 0.5 k/uL (0-1.0); Monocytes % (A) 6 %; Neutrophils # (A) 4.6 k/uL (1.3-7.7); Neutrophils % (A) 56 %; Platelet Count 297 k/uL (150-450); RBC 6.05 m/uL (4.30-5.90); RDW 13.4 % (11.5-15.5); WBC 8.2 k/uL (3.8-10.6)
[2017-10-05 07:00] LABS: Calcium 9.8 mg/dL (8.4-10.2); Potassium 4.6 mmol/L (3.5-5.1)
[2017-10-05] MEDS: HEPARIN SODIUM,PORCINE 5,000 UNIT/ML 1 ML VIAL SQ SCH ×2 (08:41→21:13)
[2017-10-05] MEDS: CLOPIDOGREL 75 MG TAB PO SCH (08:41)
--- NOTE | 2017-10-05 10:11 | CONS ---
CONSULTATION CHIEF COMPLAINT: 1. CVA. 2. Aortic regurgitation. [place] is a 57-year-old gentleman with history of hypertension, dyslipidemia, for which he was not taking any medications. He came to hospital with sudden onset of weakness of the left leg, left arm and left side of his face. He has been diagnosed with a CVA and already had extensive evaluation by Neurology. On an echocardiogram that he had he has normal LV function with [id number] aortic regurgitation. I have been consulted to do a CAMILO on him both to assess the aortic regurgitation and to rule out cardiac source for thromboembolic CVA. PAST MEDICAL HISTORY: Significant for hypertension, dyslipidemia. MEDICATIONS: None. ALLERGIES: None. FAMILY HISTORY: Negative for premature coronary artery disease. SOCIAL HISTORY: Significant for smoking and ETOH abuse. REVIEW OF SYSTEMS: HEENT is unremarkable. CARDIAC: As described above. RESPIRATORY: Negative. GI: Negative. GENITOURINARY: Negative. ALLERGY/IMMUNOLOGY: Negative. SKIN: Negative. MUSCULOSKELETAL: Negative. ENDOCRINE: Negative. CONSTITUTIONAL: Negative. ONCOLOGICAL: Negative. LAMP SHADE JOINER: Significant for left-sided weakness. The rest of the systems review is not relevant. EXAM: Comfortable at rest. Vital signs are stable. There is no jugular venous distention. Carotid upstroke is normal. There is no bruit. Chest exam reveals good air entry bilaterally. Heart exam reveals first and second heart sounds. No gallop. No murmur. No rub abdomen is soft, nontender. Examination of extremities did not reveal edema. Peripheral pulses are felt. LAB: Show a hemoglobin of 15.9, platelet count is 297. Potassium is 4.6, creatinine is 1.1. Lipid profile shows an LDL cholesterol of 160. HDL is 37. EKG showed normal sinus rhythm with incomplete right bundle branch block. CT angiogram of the brain showed patent internal carotid artery. A CT scan of the brain showed large lacunar infarct on the left side. ASSESSMENT: 1. Cerebrovascular accident with left hemiplegia. 2. Mild to moderate aortic regurgitation. 3. Hypertension. 4. Dyslipidemia. PLAN: I am going to perform a transesophageal echo on him tomorrow A) to rule out cardiac source of thromboembolic phenomenon, B) to evaluate the aortic regurgitation. Thank you for allowing us to participate in this pleasant gentleman. MMODL / IJN: [id number] /
--- NOTE | 2017-10-05 17:03 | PN ---
PROGRESS NOTE DATE OF SERVICE: 10/05/2017. This 57-year-old gentleman who was admitted with acute left-sided weakness also had right-sided internal capsule lesion. The patient also had . Cardiology planning a CAMILO tomorrow. No chest pain. No palpitations. No fever. EXAM: Alert and oriented x3. Pulse 108, blood pressure 116/85, respirations 16, temperature 97.7, pulse ox 97% on room air. HEENT: Conjunctivae normal. NECK: No jugular venous distention. CARDIOVASCULAR: S1, S2. RESPIRATORY: Breath sounds diminished in the bases. No rhonchi, no crackles. ABDOMEN: Soft, nontender. LEGS: No edema. NERVOUS SYSTEM: Significant weakness of the left side, grade 0-1 power otherwise. LABS: Cholesterol is 224. Other labs are noted. ASSESSMENT: 1. Acute left-sided weakness and stroke caused by right internal capsular infarct and cerebrovascular insufficiency. 2. 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 3. Hypertension, uncontrolled. 4. Aortic regurgitation mild to moderate on 2D echo. 5. Hyperlipidemia. 6. History of nicotine dependence. 7. DVT prophylaxis. RECOMMENDATIONS AND DISCUSSION: I recommend to continue current management and symptomatic treatment. Otherwise at this time CAMILO. Continue antiplatelet. Continue the rest of the medications. Guarded prognosis. Further recommendations to follow. MMODL / IJN: [id number] / JACQUI
[2017-10-05] MEDS: ATORVASTATIN 40 MG TAB PO SCH (21:13)
[2017-10-06 05:51] LABS: Glucose,Whole Blood 82 mg/dL (75-99)
[2017-10-06 06:06] LABS: Basophils # (A) 0.1 k/uL (0-0.2); Basophils % (A) 1 %; Eosinophils # (A) 0.4 k/uL (0-0.7); Eosinophils % (A) 5 %; HCT 47.6 % (39.0-53.0); HGB 15.6 gm/dL (13.0-17.5); Lymphocytes # (A) 2.7 k/uL (1.0-4.8); Lymphocytes % (A) 31 %; MCHC 32.8 g/dL (31.0-37.0); MCV 79.5 fL (80.0-100.0); Mean Platelet Volume 7.1; Monocytes # (A) 0.5 k/uL (0-1.0); Monocytes % (A) 6 %; Neutrophils # (A) 4.7 k/uL (1.3-7.7); Neutrophils % (A) 55 %; Platelet Count 302 k/uL (150-450); RBC 5.99 m/uL (4.30-5.90); RDW 13.5 % (11.5-15.5); WBC 8.5 k/uL (3.8-10.6)
[2017-10-06 06:21] LABS: Calcium 9.4 mg/dL (8.4-10.2); Potassium 4.7 mmol/L (3.5-5.1)
[2017-10-06] MEDS ORDERED: fentaNYL (PF) 50 MCG/ML 2 ML AMP ONE (07:10)
[2017-10-06] MEDS ORDERED: MIDAZOLAM 2 MG/2 ML VIAL ONE (07:10)
[2017-10-06] MEDS: BENZOCAINE SPRAY 1 CAN TOPICAL ONE ×3 (07:53→08:08)
[2017-10-06] MEDS ORDERED: IV FLUID CONTINUATION 475 ML IV ONE (07:53)
[2017-10-06] MEDS ORDERED: MIDAZOLAM 2 MG/2 ML VIAL IVP ONE (08:23)
[2017-10-06] MEDS ORDERED: fentaNYL (PF) 50 MCG/ML 2 ML AMP IVP ONE (08:23)
--- NOTE | 2017-10-06 09:31 | ECHOT ---
TRANSESOPHAGEAL ECHOCARDIOGRAM INDICATIONS: CVA. PROCEDURE NOTE: After obtaining informed consent, transesophageal echocardiogram was performed in left lateral position using an Omniplane probe. Local and IV sedation were obtained using Xylocaine spray, 2 mg of intravenous Versed and 50 mcg of fentanyl. The patient tolerated the procedure well without any obvious immediate complications. FINDINGS: 1. Left ventricle has normal size and systolic function with an ejection fraction of 60%. 2. There is no intracardiac thrombus within the left atrial appendage, left atrium, right atrium, right ventricle or left ventricle. 3. There is a prominent moderator band within the right ventricle. 4. Interatrial septum: There is no evidence of jkxn-ic-pktzy shunt by color-flow Doppler or aphiw-wv-oimc shunt by agitated saline contrast study. 5. Mitral valve is anatomically normal. There is no evidence of mitral stenosis or regurgitation. 6. Tricuspid valve appears normal. 7. Aortic valve is a 3-leaflet valve. There is moderate eccentric jet of aortic regurgitation. 8. Aorta appears mildly dilated, measures about 4.1 cm. CONCLUSIONS: 1. No intracardiac thrombus. 2. Moderate eccentric jet of aortic regurgitation. 3. No evidence of shunting across the interatrial septum. MMODL / IJN: [id number] /
[2017-10-06] MEDS: PANTOPRAZOLE 40 MG TABLET PO SCH (10:13)
[2017-10-06] MEDS: HEPARIN SODIUM,PORCINE 5,000 UNIT/ML 1 ML VIAL SQ SCH ×2 (10:13→19:51)
[2017-10-06] MEDS: CLOPIDOGREL 75 MG TAB PO SCH (10:13)
--- NOTE | 2017-10-06 11:16 | ECHOT ---
TRANSESOPHAGEAL ECHOCARDIOGRAM ADDENDUM NOTE I performed transesophageal echo on this patient. Patient received moderate conscious sedation. Total sedation time was 15 minutes. MMTHI / IJN: [id number] /
[2017-10-06] MEDS: ATORVASTATIN 40 MG TAB PO SCH (19:51)
--- NOTE | 2017-10-07 00:07 | EEG ---
ELECTROENCEPHALOGRAM REPORT DATE OF SERVICE: 10/03/2017. REASON FOR TESTING: Stroke. DESCRIPTION OF THE PROCEDURE: This EEG was performed using a 21 channel digital electroencephalograph, following international 10-20 system. DESCRIPTION OF THE RECORDING: From the beginning of the tracing, and with patient's eyes closed, the background rhythm was mostly consisting of 10 Hz alpha frequency in the posterior occipital leads. No obvious asymmetry is seen. Photic stimulation was performed with a good driving response seen. No pathological waves were elicited. Hyperventilation was not performed. Occasional movement artifacts and muscle artifacts are seen. The patient remains awake throughout the tracing. No epileptiform discharges were seen. His EKG lead showed a regular rate and rhythm. INTERPRETATION: This awake EEG can be considered within normal limits. There was no asymmetry seen. No epileptiform discharges were noticed. The absence of epileptiform discharges does not rule out the diagnosis of epilepsy; therefore clinical correlation is recommended. MMCAMERONL / IJN: [id number] /
[2017-10-07 06:30] LABS: Basophils # (A) 0.1 k/uL (0-0.2); Basophils % (A) 1 %; Eosinophils # (A) 0.5 k/uL (0-0.7); Eosinophils % (A) 6 %; HCT 45.5 % (39.0-53.0); HGB 15.1 gm/dL (13.0-17.5); Lymphocytes # (A) 2.4 k/uL (1.0-4.8); Lymphocytes % (A) 26 %; MCH 26.3 pg (25.0-35.0); MCHC 33.2 g/dL (31.0-37.0); MCV 79.1 fL (80.0-100.0); Mean Platelet Volume 7.5; Monocytes # (A) 0.6 k/uL (0-1.0); Monocytes % (A) 6 %; Neutrophils # (A) 5.4 k/uL (1.3-7.7); Neutrophils % (A) 60 %; Platelet Count 260 k/uL (150-450); RBC 5.75 m/uL (4.30-5.90); RDW 13.3 % (11.5-15.5); WBC 9.1 k/uL (3.8-10.6)
[2017-10-07 06:35] LABS: Calcium 9.5 mg/dL (8.4-10.2); Potassium 4.6 mmol/L (3.5-5.1)
[2017-10-07] MEDS: PANTOPRAZOLE 40 MG TABLET PO SCH (07:11)
[2017-10-07] MEDS: HEPARIN SODIUM,PORCINE 5,000 UNIT/ML 1 ML VIAL SQ SCH ×2 (09:35→19:38)
[2017-10-07] MEDS: CLOPIDOGREL 75 MG TAB PO SCH (09:36)
--- NOTE | 2017-10-07 10:13 | P.PN ---
Subjective Progress Note Date: 10/06/17 Patient seen and examined at the bedside by Dr. Ritter. Patient presented to the ER on 10/02/2017 with a chief complaint of left sides weakness. Neurology has been consulted and is following. Patient underwent CAMILO this morning by Dr. Evans, which was negative for thrombus. It did reveal moderate eccentric jet of aortic regurgitation. Patients left facial droop remains. Patient with severe weakness of left upper and lower extremity. MRI Brain 10/02/17: Evidence of acute 3x1 cm infarct in the right internal capsule. Other white matter changes were also noted including possible additional demyelinating disease. CT Brain 10/02/17: no acute process, large old left lacunar infarctof the left basal ganglia. Acute on chronic maxillary sinus disease. CT Angiogram: no hemodynamically significant stenosis. Objective - Vital Signs Vital signs: Vital Signs Temp 98.9 F 10/06/17 11:40 Pulse 89 10/06/17 11:40 Resp 18 10/06/17 11:40 BP 136/89 10/06/17 11:40 Pulse Ox 92 L 10/06/17 11:40 Intake & Output 10/05/17 10/06/17 10/06/17 18:59 06:59 18:59 Intake Total 1080 315 Output Total 2 604 601 Balance 1078 -604 -286 Weight 92.5 kg Intake: IV 75 Oral 1080 240 Output: Urine 600 600 Stool 2 4 1 Other: Voiding Method Urinal Urinal Urinal # Voids 3 1 - Exam GENERAL: This is a 57-year-old male in no apparent distress at the time of examination. Pleasant and cooperative. HEENT: Left facial droop noted. Head is atraumatic, normocephalic. Pupils are equal, round, and reactive to light. Sclerae anicteric. Conjunctivae are clear. Mucus membranes of the mouth are moist. Neck is supple. RESPIRATORY: Clear to ausculation. No wheezes, rales, or rhonchi. No use of accessory muscles. Patient maintaining oxygen saturation greater than 92%. No chest wall tenderness is noted on palpation or with deep breathing. CARDIOVASCULAR: Regular rate and rhythm. S1 and S2 noted. No JVD noted. No S3 or S4 noted. GASTROINTESTINAL: No distention noted. Abdomen soft and round. Normal active bowel sounds auscultated x 4 quadrants. No pain or tenderness noted upon palpation. INTEGUMENTARY: No cyanosis. No jaundice. No rashes noted. No cellulitis noted. EXTREMITIES: Severe weakness to left upper and lower extremity. 2+ peripheral pulses. No evidence of peripheral edema. No calf tenderness noted. PSYCHIATRIC: Awake, alert, and oriented X 3. Appropriate affect. Intact judgement and insight. - Labs CBC & Chem 7: 10/07/17 06:03 10/07/17 06:03 Labs: Abnormal Lab Results - Last 24 Hours (Table) 10/06/17 Range/Units 05:44 RBC 5.99 H (4.30-5.90) m/uL MCV 79.5 L (80.0-100.0) fL Assessment and Plan Plan: ASSESSMENT: Right internal capsule cerebral vascular accident with left hemiparesis/weakness Essential hypertension Hyperlipidemia History of CVA, large left old lacunar infarct Moderate aortic regurgitation Nicotine dependence, patient is a current everyday cigarette smoker Obesity: BMI 33.9 PLAN: Neurology on consult. Appreciate recommendations and input Monitor blood pressure Continue Lipitor and Plavix Home meds as appropriate Monitor labs GI prophylaxis: Protonix 40 mg PO Daily DVT prophylaxis: Heparin 5000 units subcu every 12 hours Discharge planning: Patient requesting inpatient rehab. [facility] is patient's [facility] request. [facility] inpatient rehab is his second request. Further recommendations pending patient's course Nurse practitioner note has been reviewed by physician. Signing provider agrees with the documented findings, assessment, and plan of care.
--- NOTE | 2017-10-07 11:14 | P.DS ---
Providers Date of admission: 10/02/17 09:33 Expected date of discharge: 10/07/17 Attending physician: Sina Ritter Consults: 10/02/17 09:33 Consult Physician Routine Consulting Provider: Kellen Rivas Consult Reason/Comments: cva Do you want consulting provider notified?: Yes 10/04/17 17:29 Consult Physician Routine Consulting Provider: Raysa Mead Consult Reason/Comments: aortic regurg and stroke Do you want consulting provider notified?: Yes Primary care physician: Sina Ritter [facility] Course: 57-year-old male who presented to the emergency room on 10/02/2017 with a chief complaint of left-sided weakness. The patient underwent a CT of the brain which was negative for an acute process. It did reveal a large old lacunar infarct of the left basal ganglia. The patient underwent a CT angiogram which did not reveal any hemodynamically significant stenosis. The patient did undergo an MRI of the brain which revealed evidence of Evidence of acute 3x1 cm infarct in the right internal capsule. Other white matter changes were also noted including possible additional demyelinating disease. He was evaluated by neurology during hospitalization. He was started on Plavix 75 mg by mouth daily. He was also started on Lipitor 40 mg by mouth daily. Lipid panel revealed triglycerides 126. Cholesterol 224. LDL 162. HDL 37. Cardiology was consulted during hospitalization for request of the CAMILO. The patient underwent CAMILO on 10/06/2017. CAMILO was negative for thrombus. It did reveal moderate eccentric jet of aortic regurgitation. The patient has remained hemodynamically stable during hospitalization. He continues to have left-sided hemiparesis and left facial droop. He is alert and oriented 3. Patient has worked with physical therapy and occupational therapy during hospitalization. He was cleared for discharge to rehab facility from neurology. He was also deemed stable for discharge to inpatient rehab per Dr. Ritter. He is awaiting insurance authorization. Patient requesting [facility] for inpatient rehab. DISCHARGE DIAGNOSIS: Right internal capsule cerebral vascular accident with left hemiparesis/weakness S/P CAMILO revealing no evidence of thrombus Essential hypertension Hyperlipidemia History of CVA, large left old lacunar infarct Moderate aortic regurgitation Nicotine dependence, patient is a current everyday cigarette smoker Obesity: BMI 33.9 Nurse practitioner note has been reviewed by physician. Signing provider agrees with the documented findings, assessment, and plan of care. Patient Condition at Discharge: Fair Plan - Discharge Summary Discharge Rx Participant: No New Discharge Prescriptions: New Atorvastatin [Lipitor] 40 mg PO HS tab Clopidogrel [Plavix] 75 mg PO DAILY tab Discharge Medication List Atorvastatin [Lipitor] 40 mg PO HS tab 10/07/17 [Rx] Clopidogrel [Plavix] 75 mg PO DAILY tab 10/07/17 [Rx] Follow up Appointment(s)/Referral(s): Sina Ritter DO [Primary Care Provider] - 1 Week (1 week following DC from rehab) Abdiel Elena NPC [REFERRING] - 1 Week (1 week after DC from rehab) Activity/Diet/Wound Care/Special Instructions: Heart healthy diet Activity as tolerated. Patient is flaccid on left side Discharge Disposition: TRANSFER TO SNF/ECF
[2017-10-07] MEDS: ATORVASTATIN 40 MG TAB PO SCH (19:37)
[2017-10-08 06:43] LABS: Basophils # (A) 0.1 k/uL (0-0.2); Basophils % (A) 1 %; Eosinophils # (A) 0.5 k/uL (0-0.7); Eosinophils % (A) 6 %; HGB 15.3 gm/dL (13.0-17.5); Lymphocytes # (A) 2.4 k/uL (1.0-4.8); Lymphocytes % (A) 28 %; MCH 25.9 pg (25.0-35.0); MCHC 31.9 g/dL (31.0-37.0); Mean Platelet Volume 7.6; Monocytes # (A) 0.6 k/uL (0-1.0); Monocytes % (A) 7 %; Neutrophils # (A) 4.8 k/uL (1.3-7.7); Neutrophils % (A) 56 %; Platelet Count 269 k/uL (150-450); RBC 5.92 m/uL (4.30-5.90); RDW 13.7 % (11.5-15.5); WBC 8.5 k/uL (3.8-10.6)
[2017-10-08] MEDS: PANTOPRAZOLE 40 MG TABLET PO SCH (06:53)
[2017-10-08 07:03] LABS: Calcium 9.6 mg/dL (8.4-10.2); Potassium 4.6 mmol/L (3.5-5.1)
[2017-10-08] MEDS: CLOPIDOGREL 75 MG TAB PO SCH (08:12)
[2017-10-08] MEDS: HEPARIN SODIUM,PORCINE 5,000 UNIT/ML 1 ML VIAL SQ SCH ×2 (08:12→19:52)
--- NOTE | 2017-10-08 10:01 | P.PN ---
Progress Note - Text Progress Note Date: 10/08/17 Patient seen and examined at the bedside on rounds with Dr. Ritter. Patient was medically cleared for discharge yesterday to [facility] in [place]. Awaiting insurance authorization. Patient remains hemodynamically stable. Anticipate discharge today. Nurse practitioner note has been reviewed by physician. Signing provider agrees with the documented findings, assessment, and plan of care.
[2017-10-08 11:41] VITALS: BMI 26.0
[2017-10-08] MEDS: ATORVASTATIN 40 MG TAB PO SCH (19:52)
[2017-10-09] MEDS: PANTOPRAZOLE 40 MG TABLET PO SCH (06:36)
[2017-10-09 06:46] LABS: Basophils # (A) 0.1 k/uL (0-0.2); Basophils % (A) 1 %; Eosinophils # (A) 0.6 k/uL (0-0.7); Eosinophils % (A) 6 %; HGB 15.2 gm/dL (13.0-17.5); Lymphocytes # (A) 2.9 k/uL (1.0-4.8); Lymphocytes % (A) 31 %; MCH 26.7 pg (25.0-35.0); MCHC 33.8 g/dL (31.0-37.0); MCV 79.1 fL (80.0-100.0); Mean Platelet Volume 7.7; Monocytes # (A) 0.6 k/uL (0-1.0); Monocytes % (A) 7 %; Neutrophils % (A) 53 %; Platelet Count 271 k/uL (150-450); RBC 5.69 m/uL (4.30-5.90); RDW 13.3 % (11.5-15.5); WBC 9.4 k/uL (3.8-10.6)
[2017-10-09 07:14] LABS: Anion Gap 10 mmol/L; Blood Urea Nitrogen 17 mg/dL (9-20); Calcium 9.4 mg/dL (8.4-10.2); Carbon Dioxide 24 mmol/L (22-30); Chloride 106 mmol/L (98-107); Glucose 80 mg/dL (74-99); Potassium 4.7 mmol/L (3.5-5.1); Sodium 140 mmol/L (137-145)
[2017-10-09] MEDS: HEPARIN SODIUM,PORCINE 5,000 UNIT/ML 1 ML VIAL SQ SCH (08:50)
[2017-10-09] MEDS: CLOPIDOGREL 75 MG TAB PO SCH (08:50)
--- NOTE | 2017-10-09 08:57 | P.PN ---
Progress Note - Text Progress Note Date: 10/09/17 Patient seen and examined at the bedside on rounds with Dr. Ritter. Patient was medically cleared for discharge 10/07/2017 to [facility] in [place]. Discharge has been delayed secondary to pending insurance authorization. Patient remains hemodynamically stable. Social work updated PHARMACIST INTERN that insurance authorization was obtained this morning. Anticipate discharge today. Nurse practitioner note has been reviewed by physician. Signing provider agrees with the documented findings, assessment, and plan of care.
[2017-10-09 11:06] VITALS: BP 129/60; PULSE 73; RESP 8; TEMP 97.8
== END 2017-10-09 11:50 | DRG 65 ==
LOC: EC 08:13 → 6SEL 09:33
PROVIDERS: ADMIT Family Medicine; ATTEND Family Medicine
DX: I63.9 Cerebral infarction, unspecified (principal); G81.94 Hemiplegia, unspecified affecting left nondominant side; E66.9 Obesity, unspecified; Z68.33 Body mass index [BMI] 33.0-33.9, adult; E78.00 Pure hypercholesterolemia, unspecified; E78.5 Hyperlipidemia, unspecified; F10.10 Alcohol abuse, uncomplicated; F17.210 Nicotine dependence, cigarettes, uncomplicated; I10 Essential (primary) hypertension; I35.1 Nonrheumatic aortic (valve) insufficiency; I67.81 Acute cerebrovascular insufficiency; J01.00 Acute maxillary sinusitis, unspecified; J32.0 Chronic maxillary sinusitis; Z80.7 Family history of other malignant neoplasms of lymphoid, hematopoietic and related tissues; Z96.641 Presence of right artificial hip joint
CPT/HCPCS: 36415; 70450; 70496; 70498; 70553; 71046; 80048; 80053; 80061; 82550; 82553; 83090; 84484; 85025; 85610; 85730; 93005; 93306; 93312; 93320; 93325; 95816; 96360; 96361; 99285

== ENCOUNTER 2021-02-04 09:43 | Emergency (ER) | payer BC, MEDICARE ==
[2021-02-04 09:53] VITALS: RESP 18; TEMP 98.9
[2021-02-04] MEDS ORDERED: methylPREDNISolone SOD SUCCI 125 MG/2 ML VIAL IV STA (10:27)
[2021-02-04] MEDS ORDERED: diphenhydrAMINE 50 MG/ML 1 ML VIAL IVP STA (10:27)
[2021-02-04] MEDS ORDERED: FAMOTIDINE 20 MG/2 ML VIAL IV STA (10:27)
[2021-02-04] MEDS ORDERED: METOCLOPRAMIDE 5 MG/ML 2 ML VIAL IVP STA (10:28)
[2021-02-04] MEDS ORDERED: chlorproMAZINE 25 MG/ML 2 ML AMP IM STA (10:28)
--- NOTE | 2021-02-04 10:44 | ED ---
General Adult HPI - General Chief complaint: Recheck/Abnormal Lab/Rx Stated complaint: Hiccups/Rash Time Seen by Provider: 02/04/21 10:04 Source: patient, RN notes reviewed Mode of arrival: wheelchair Limitations: no limitations - History of Present Illness Initial comments: 61-year-old male with a past medical history of CVA with residual left-sided we akness, hyperlipidemia, hypertension and presents to the emergency room for a chief complaint of hiccups. Patient reports that he has had hiccups on and off for a month. Patient reports it always goes away at night when he goes to sleep. States sometimes it doesn't come back till evening. However sometimes it does come back earlier. Patient woke up with hiccups today and has been having them throughout the morning. Patient does have an appointment this Friday with his doctor. Patient also has a rash. States that he has had a rash for about 5 days to the chest back and legs. States it is itchy. Patient did not have any new detergents or foods.Patient has no other complaints at this time including shortness of breath, chest pain, abdominal pain, nausea or vomiting, headache, or visual changes. - Related Data Home Medications Medication Instructions Recorded Confirmed Acetaminophen Tab [Tylenol Tab] 1,000 mg PO Q6HR PRN 02/04/21 02/04/21 Ibuprofen [Motrin Ib] 600 mg PO Q8H PRN 02/04/21 02/04/21 diphenhydrAMINE [Benadryl] 50 mg PO HS PRN 02/04/21 02/04/21 lisinopriL [Zestril] 5 mg PO DAILY 02/04/21 02/04/21 Previous Rx's Medication Instructions Recorded Atorvastatin [Lipitor] 40 mg PO HS tab 10/07/17 Clopidogrel [Plavix] 75 mg PO DAILY tab 10/07/17 chlorproMAZINE [Thorazine] 25 mg PO TID 3 Days #9 tablet 02/04/21 predniSONE 50 mg PO DAILY #5 tablet 02/04/21 Allergies Allergy/AdvReac Type Severity Reaction Status Date / Time No Known Allergies Allergy Verified 02/04/21 11:44 Review of Systems ROS Statement: Those systems with pertinent positive or pertinent negative responses have been documented in the HPI. ROS Other: All systems not noted in ROS Statement are negative. Past Medical History Past Medical History: CVA/TIA, Hyperlipidemia, Hypertension Additional Past Medical History / Comment(s): left side weakness History of Any Multi-Drug Resistant Organisms: None Reported Past Surgical History: Joint Replacement, Orthopedic Surgery Additional Past Surgical History / Comment(s): Total R hip arthroplasty, L wrist fracture with surgery, UVPPP, facial fracture when a child with surgery, sinus surgery. Past Anesthesia/Blood Transfusion Reactions: No Reported Reaction Past Psychological History: No Psychological Hx Reported Smoking Status: Never smoker Past Alcohol Use History: Occasional Past Drug Use History: None Reported - Past Family History Father Family Medical History: Cancer Additional Family Medical History / Comment(s): Father had "blood cancer" and of this at the age of 61 yrs. Mother Family Medical History: Cancer Additional Family Medical History / Comment(s): Mother from lymphoma at the age of 62 yrs. General Exam Limitations: no limitations General appearance: alert, in no apparent distress Head exam: Present: atraumatic, normocephalic, normal inspection Eye exam: Present: normal appearance, PERRL, EOMI. Absent: scleral icterus, conjunctival injection, periorbital swelling ENT exam: Present: normal exam, mucous membranes moist Neck exam: Present: normal inspection, full ROM. Absent: tenderness, meningismus, lymphadenopathy Respiratory exam: Present: normal lung sounds bilaterally, other (patient does have hiccups at this time.). Absent: respiratory distress, wheezes, rales, rhonchi, stridor Cardiovascular Exam: Present: regular rate, normal rhythm, normal heart sounds. Absent: systolic murmur, diastolic murmur, rubs, gallop, clicks GI/Abdominal exam: Present: soft, normal bowel sounds. Absent: distended, tenderness, guarding, rebound, rigid Neurological exam: Present: alert Course Vital Signs 02/04/21 02/04/21 09:49 12:42 Temperature 98.9 F Pulse Rate 105 H 72 Respiratory 18 18 Rate Blood Pressure 132/76 127/74 O2 Sat by Pulse 95 98 Oximetry Medical Decision Making - Medical Decision Making Vitals are stable. Patient is well-appearing. Patient does have hiccups while in the emergency room. He also has a erythematous rash noted to the chest back and legs. This is raised plaque-like rash consistent with hives. Patient does not have any swelling of the lips tongue or throat. Patient was given Solu- Medrol, Benadryl, and Pepcid for this. We will put him on prednisone outpatient for his rash. As for his hiccups daughter was concerned as these started after he had a stroke a few years ago, requesting brain imaging. CT brain was ordered which revealed only old lacunar infarcts and chronic appearing. Duncan tricular white matter ischemic changes. There is no acute infarcts evident. No neurologic deficits on exam aside from left-sided weakness that has been persistent since previous stroke. No new changes. Chest x-ray was obtained which showed no acute pulmonary process. Patient was given Reglan and Thorazine and had resolution of hiccups. At this time patient can be discharged home. He does have an appointment with his primary care doctor in 5 days. We will give him a 3 day rx for Thorazine. He will also take steroid for his rash. He will return here for any worsening symptoms. Disposition Clinical Impression: Hiccups, Rash Disposition: HOME SELF-CARE Condition: Good Instructions (If sedation given, give patient instructions): Hiccups (ED), Acute Rash (ED) Additional Instructions: Please take medications as directed. Follow-up with your doctor in one to 2 days. Return to the emergency room for any worsening symptoms. Prescriptions: predniSONE 50 mg PO DAILY #5 tablet chlorproMAZINE [Thorazine] 25 mg PO TID 3 Days #9 tablet Is patient prescribed a controlled substance at d/c from ED?: No Referrals: Nonstaff,Physician [Primary Care Provider] - 1-2 days Time of Disposition: 12:20
--- NOTE | 2021-02-04 11:57 | CT ---
EXAMINATION TYPE: CT brain wo con DATE OF EXAM: 02/04/2021 COMPARISON: 10/02/2017 INDICATION: H/O stroke, hiccups DLP: 1211.4 mGycm, Automated exposure control for dose reduction was used. CONTRAST: None CT of the brain is performed utilizing 3 mm thick sections through the posterior fossa and 3 mm thick sections through the remaining calvarium. Study is performed within 24 hours of arrival to the hosp ital. No abnormal hyperdensity is present to suggest an acute intracranial hemorrhage. No mass lesion is evident. No suspicious skull base masses are evident. No acute infarcts are evident. Periventricular white matter hypodensity is present, likely on the bas is of chronic white matter ischemic changes. There is interval prominence of the sulcus in the left w atershed region. Plane of section may account for this finding, series 202 image 59. Old lacunar infa rct in the right blount radiata and left basal ganglion is evident. Ventricles and sulci are appropriate for the patient age. Paranasal sinuses and mastoid air cells within the [id number]-[id number]-cedo are clear. IMPRESSIONS: 1. Old lacunar infarcts and chronic appearing periventricular white matter ischemic changes.
--- NOTE | 2021-02-04 11:58 | XR ---
EXAMINATION TYPE: XR chest 2V DATE OF EXAM: 02/04/2021 COMPARISON: 10/02/2017 INDICATION: Hiccups, rash TECHNIQUE: Frontal and lateral views of the chest are obtained. FINDINGS: The heart size is normal. The pulmonary vasculature is normal. The lungs are clear. IMPRESSION: 1. No acute pulmonary process.
[2021-02-04 12:44] VITALS: BP 127/74; PULSE 72
== END 2021-02-04 12:44 | disposition home or self-care (01) ==
LOC: EC 09:43
DX: R06.6 Hiccough (principal); R21 Rash and other nonspecific skin eruption; I10 Essential (primary) hypertension; E78.5 Hyperlipidemia, unspecified; Z79.02 Long term (current) use of antithrombotics/antiplatelets; Z79.899 Other long term (current) drug therapy; Z86.73 Personal history of transient ischemic attack (TIA), and cerebral infarction without residual deficits
CPT/HCPCS: 71046; 70450; 96374; 96375 ×3; 96372; 99284; J1200; J2765; J2930; J3230